=== PATIENT | male | born 1990 | race Caucasian/White ===

== ENCOUNTER 2017-02-21 04:20 | Emergency (ER) | payer MEDICAID ==
[2017-02-21 04:25] VITALS: RESP 16
--- NOTE | 2017-02-21 04:31 | EDPHY ---
H & P Stated Complaint: laceration RLE HPI/ROS: HPI CHIEF COMPLAINT: Right leg thigh laceration HISTORY OF PRESENT ILLNESS: This patient very pleasant 27-year-old male, denies any significant past medical history except for alcohol-induced pancreatitis, does tell me he drinks alcohol daily approximately a 5th per day. He states that he has a nighttime person he was up cooking steak. He got a new serrated knife, he has had alcohol to drink tonight he was cutting a piece of fat off the steak and swung the knife at the piece of steak and over extended the swing slicing the top of his thigh open. Sustained a 10 cm horizontal laceration to the distal right thigh. He is neurovascular intact distally. He has good leg strength. There does not appear to be any arterial or muscle injury. His quad is intact. He is able to extend his leg flex his knee. And extend his knee all the way out. No other injuries. He tells me his tetanus shot is not up-to-date. Past Medical History: Alcohol-induced pancreatitis, alcoholism Past Surgical History: No recent surgical history Social History: Daily alcohol use, daily tobacco use, occasional cocaine Family History: Noncontributory ROS REVIEW OF SYSTEMS: A comprehensive 10 point review of systems is otherwise negative aside from elements mentioned in the history of present illness. Exam Constitutional appears well nontoxic triage nursing summary reviewed, vital signs reviewed, awake/alert. Eyes normal conjunctivae and sclera, EOMI, PERRLA. HENT normal inspection, atraumatic, moist mucus membranes, no epistaxis, neck supple/ no meningismus, no raccoon eyes. Respiratory clear to auscultation bilaterally, normal breath sounds, no respiratory distress, no wheezing. Cardiovascular rate normal, regular rhythm, no murmur, no edema, distal pulses normal. Gastrointestinal soft, non-tender, no rebound, no guarding, normal bowel sounds, no distension, no pulsatile mass. Genitourinary no CVA tenderness. Musculoskeletal no midline vertebral tenderness, full range of motion, no calf swelling, no tenderness of extremities, no meningismus, good pulses, neurovascularly intact. Skin right leg: Thigh: Right leg is neurovascularly intact distally good pulse, good cap refill, good sensation. Across the right thigh there is a 10 cm horizontal laceration. Fatty tissue is seen. No arterial injury. No tendon injury. No muscle belly involvement. Good extension leg good flexion at the knee full extension knee. Quadriceps still intact. Neurologic awake, alert and oriented x 3, AAOx3, moves all 4 extremities equally, motor intact, sensory intact, CN II-XII intact, normal cerebellar, normal vision, normal speech. Psychiatric normal mood/affect. Heme/Lymph/Immune no lymphadenopathy. Differential Diagnosis: Includes but is not limited to in a particular order, large right leg laceration, soft tissue injury, need for tetanus shot. Medical Decision Making: Patient will be copiously cleaned out irrigated. He will need to be numbed. He will need steroid pair. Will need be put on antibiotics prophylactically. Will update his tetanus shot. Will need to have sutures removed in 12 days. Re-evaluation: 0521AM: Laceration Repair Procedure: Verbal Consent was obtained, Under sterile conditions, The patient had lidocaine with epinephrine used approximately 10ccs to local anesthetize the 10cm horiztonal right thigh Laceration. The wound was copiously irrigated with sterile fluid, the wound was explored for foreign bodies there were none visualized, the wound was explored with a sterile glove to the base. There are no deep structures involved, including no arterial injury. 11 interrupted 3.O Prolene Sutures were placed in this patient's laceration. He had good close approximation of the wound edges. He Tolerated this well. Patient understands have sutures removed in 12 days. Keep an eye on his wound for infection. Take Keflex as prescribed. Return emergency room if he has any worsening symptoms questions or concerns. Source: Patient - Personal History Current Tetanus/Diphtheria Vaccine: No - Medical/Surgical History Hx Asthma: No Hx Chronic Respiratory Disease: No Hx Diabetes: No Hx Cardiac Disease: No Hx Renal Disease: No Hx Cirrhosis: No Hx Alcoholism: Yes Hx HIV/AIDS: No Hx Splenectomy or Spleen Trauma: No Other PMH: PMHx: ETOH pancreatitis, Alcoholism. PSHx: R hand - Social History Smoking Status: Current every day smoker Constitutional: Initial Vital Signs Temperature (C) 36.5 C 02/21/17 04:22 Heart Rate 84 02/21/17 04:22 Respiratory Rate 16 02/21/17 04:22 Blood Pressure 109/69 02/21/17 04:22 O2 Sat (%) 93 02/21/17 04:22 O2 Delivery Mode Room Air Allergies/Adverse Reactions: Penicillins Allergy (Unknown, Verified 05/23/16 17:09) Unknown Home Medications: Medication Instructions Recorded Cephalexin [Keflex] 500 mg PO Q6H #28 cap 02/21/17 Medical Decision Making - Data Points Medications Given: Discontinued Medications Cephalexin HCl (Keflex) 500 mg PO EDNOW ONE PRN Reason: Protocol Stop: 02/21/17 04:40 Last Admin: 02/21/17 04:51 Dose: 500 mg Diphtheria/Tetanus/Acell Pertussis (Boostrix) 0.5 ml IM .ONCE ONE Stop: 02/21/17 04:40 Last Admin: 02/21/17 04:51 Dose: 0.5 ml Departure - Departure Disposition: Home, Routine, Self-Care Clinical Impression: Laceration Condition: Good Instructions: Care For Your Stitches (ED), Laceration (ED) Additional Instructions: 1.Keep your wound clean dry and intact and protected. 2. Your sutures need to be removed in 12 days. 3. Watch for signs of infection this includes worsening swelling, pain, redness , drainage or pus. Referrals: NONE *PRIMARY CARE P,. [Primary Care Provider] - As per Instructions Prescriptions: Cephalexin [Keflex] 500 mg PO Q6H #28 cap
[2017-02-21] MEDS ORDERED: CEPHALEXIN 500 MG CAP PO ONE (04:39)
[2017-02-21] MEDS ORDERED: TDAP ADULT 0.5 ML INJ (BOOSTRIX) IM ONE (04:39)
[2017-02-21 05:32] VITALS: BP 114/72; PULSE 89; TEMP 97.5; O2SAT 95
== END 2017-02-21 05:31 | disposition home or self-care (01) ==
PROC: 3E0234Z Introduction of Serum, Toxoid and Vaccine into Muscle, Percutaneous Approach (ICD-10-PCS; principal; 2017-02-21)
PROC: 0HQHXZZ Repair Right Upper Leg Skin, External Approach (ICD-10-PCS; principal; 2017-02-21)
DX: S71.111A Laceration without foreign body, right thigh, initial encounter (principal); F17.200 Nicotine dependence, unspecified, uncomplicated; Z23 Encounter for immunization; W26.0XXA Contact with knife, initial encounter